=== PATIENT | male | born 1940 | race African-American/Black ===

== ENCOUNTER 2020-10-01 09:55 | Outpatient (CLI) | payer MEDICARE, BC, SELFPAY ==
--- NOTE | 2020-10-01 09:57 | ECG_ITS ---
Measurements Intervals [place] Rate: 60 P: 47 KS: 169 QRS: 7 QRSD: 152 T: 29 QT: 416 QTc: 417 Interpretive Statements SINUS RHYTHM RIGHT BUNDLE BRANCH BLOCK CONSIDER INFERIOR INFARCT, AGE INDETERMINATE ABNORMAL ECG Electronically Signed On 10-01-2020 10:13:30 [employer] by Adis Hartley D.O.
[2020-10-01 10:15] LABS: Hematocrit 34.5 % (42.0-52.0)
[2020-10-01 10:28] LABS: Potassium 4.4 mmol/L (3.4-5.0)
[2020-10-01 10:40] LABS: Anion Gap 3 mmol/L (8-16); Blood Urea Nitrogen 16 mg/dL (9-20); Carbon Dioxide 34 mmol/L (22-30); Chloride 104 mmol/L (98-107); Estimated Glomerular Filt Rate > 60; Glucose 138 mg/dL (75-110); Sodium 141 mmol/L (137-145)
== END 2020-10-01 09:56 | disposition home or self-care (01) ==
PROVIDERS: Anesthesiology; PCP Family Medicine; Visit Provider Urology
DX: D64.9 Anemia, unspecified (principal); I10 Essential (primary) hypertension; Z79.899 Other long term (current) drug therapy; Z01.818 Encounter for other preprocedural examination; I45.10 Unspecified right bundle-branch block
CPT/HCPCS: 36415; 80048; 85014; 85018; 93005

== ENCOUNTER 2020-10-04 02:03 | Outpatient (CLI) | payer MEDICARE, BC, SELFPAY ==
[2020-10-04 20:00] LABS: SARS-CoV-2 RNA PCR Negative
== END 2020-10-04 02:04 | disposition home or self-care (01) ==
LOC: ANHCOVIDDT 02:04
PROVIDERS: PCP Family Medicine; Visit Provider Urology
DX: Z01.812 Encounter for preprocedural laboratory examination (principal); Z20.828 Contact with and (suspected) exposure to other viral communicable diseases
CPT/HCPCS: 87635; C9803; U0003

== ENCOUNTER → 2020-10-07 12:07 | Day surgery (SDC) | payer MEDICARE, BC, SELFPAY ==
[2020-09-30 13:10] VITALS: BMI 34.4
--- NOTE | 2020-10-04 14:36 | WPDANESEPPF ---
Anes - Initial Pre Proc Eval Procedure: Operation Date: 10/07/20 12:30 Proposed Procedures p Interstim Phase One And Two Combined - Rico Gautam MD Date/Time: 10/04/20 14:36 Surgeon: Rico Gautam MD Pre Op Diagnosis: Overactive Bladder Patient Data Age: 79 Gender: M Height: 1.78 m Weight: 109 kg Allergies Allergy/AdvReac Type Severity Reaction Status Date / Time No Known Allergies Allergy Unverified 09/30/20 12:59 Home Medications Medication Instructions Recorded Confirmed Type B Complex-Vitamin B12 1,000 mg PO QAM 09/30/20 09/30/20 History aspirin [Adult Low Dose Aspirin] 81 mg PO DAILY 09/30/20 09/30/20 History clopidogrel 75 mg PO DAILY 09/30/20 09/30/20 History ferrous sulfate 325 mg PO DAILY 09/30/20 09/30/20 History folic acid 1 mg PO QAM 09/30/20 09/30/20 History hydrochlorothiazide 12.5 mg PO QAM 09/30/20 09/30/20 History metoprolol tartrate 50 mg PO BID 09/30/20 09/30/20 History mirabegron [Myrbetriq] 50 mg PO HS 09/30/20 09/30/20 History pantoprazole 20 mg PO QAM 09/30/20 09/30/20 History potassium chloride 10 meq PO QAM 09/30/20 09/30/20 History simvastatin 40 mg PO HS 09/30/20 09/30/20 History PMFSH Past Medical History Medical History (Updated 10/04/20 @ 14:36 by Nikhil Cespedes DO) BPH (benign prostatic hyperplasia) CAD (coronary artery disease) GERD (gastroesophageal reflux disease) Hyperlipidemia Hypertension [place] (obstructive sleep apnea) CPAP Osteoarthritis Surgical History Surgical History (Updated 10/04/20 @ 14:36 by Nikhil Cespedes DO) History of coronary artery stent placement [id number] Social History Social History Smoking packs per day: 0.5 Smoking cigarettes per day: 10.0 Years smoked: 10 Smoking pack-years: 5.00 Smoking status: Former smoker Smoking end date: 04/17/80 Alcohol intake: former Substance use: never Additional living arrangements comments: Spiritual care concerns: No Anes - Eval Final PreProcedure Day of Procedure 10/04/20 14:36 Patient weight: obese Heart: regular rate and rhythm Lungs: clear to auscultation and normal air movement Airway: Mallampati scale class II Neurological: alert and oriented Last oral intake: >/= 8 hours ASA classification: III Emergent: no Anesthetic plan: proceed Anesthesia type and monitoring: general GIVS and standard monitoring Informed Consent: The patient's anesthetic plan and its attendant risks and benefits were discussed with the patient/family/POA. Questions were solicited and answers provided to the satisfaction of the patient/family/POA.
--- NOTE | 2020-10-05 15:50 | PM.IMHP ---
H&P: HPI History of Present Illness Date/Time: 10/05/20 15:50 Chief Complaint: OAB Narrative: Chris Birmingham is a 79 year old male with OAB and a successful trial of SNS Review of Systems Review of Systems: All systems reviewed & are unremarkable except as noted in HPI and below PMFSH Past Medical History Medical History (Updated 10/05/20 @ 15:52 by Rico Gautam MD) BPH (benign prostatic hyperplasia) CAD (coronary artery disease) GERD (gastroesophageal reflux disease) Hyperlipidemia Hypertension [place] (obstructive sleep apnea) CPAP Osteoarthritis Surgical History Surgical History (Updated 10/04/20 @ 14:36 by Nikhil Cespedes DO) History of coronary artery stent placement , 2003 Social History Social History Smoking packs per day: 0.5 Smoking cigarettes per day: 10.0 Years smoked: 10 Smoking pack-years: 5.00 Smoking status: Former smoker Smoking end date: 04/17/80 Alcohol intake: former Substance use: never Additional living arrangements comments: Spiritual care concerns: No Meds Home Medications and Allergies Home Medications Medication Instructions Recorded Confirmed Type B Complex-Vitamin B12 1,000 mg PO QAM 09/30/20 09/30/20 History aspirin [Adult Low Dose Aspirin] 81 mg PO DAILY 09/30/20 09/30/20 History clopidogrel 75 mg PO DAILY 09/30/20 09/30/20 History ferrous sulfate 325 mg PO DAILY 09/30/20 09/30/20 History folic acid 1 mg PO QAM 09/30/20 09/30/20 History hydrochlorothiazide 12.5 mg PO QAM 09/30/20 09/30/20 History metoprolol tartrate 50 mg PO BID 09/30/20 09/30/20 History mirabegron [Myrbetriq] 50 mg PO HS 09/30/20 09/30/20 History pantoprazole 20 mg PO QAM 09/30/20 09/30/20 History potassium chloride 10 meq PO QAM 09/30/20 09/30/20 History simvastatin 40 mg PO HS 09/30/20 09/30/20 History Allergies Allergy/AdvReac Type Severity Reaction Status Date / Time No Known Allergies Allergy Unverified 09/30/20 12:59 Exam Const: General: cooperative and healthy appearing Eyes: General: appearance normal, both eyes and all related structures Resp: Effort & Inspection: normal respiratory effort and able to speak in complete sentences GI: Inspection: normal to inspection Back/Spine/Pelvis: Back: no CVA tenderness Skin: General skin exam: normal color Neuro: General: patient oriented x3 Extrem: General: normal to inspection Assessment and Plan Assessment and plan (1) Overactive bladder: Code(s): N32.81 - Overactive bladder Status: Acute Assessment and Plan: InterStim inplant
--- NOTE | 2020-10-07 10:26 | WPDHPUPDATE1 ---
History and Physical Update Update Date/Time: 10/07/20 10:26 History and Physical has been reviewed, including an updated exam of the patient. There are NO changes in the patient's condition. Risks, benefits, and alternatives have been discussed and questions answered. Patient agrees to proceed with procedure.
== END ==
PROVIDERS: PCP Family Medicine; Visit Provider Urology
DX: N32.81 Overactive bladder (principal); I10 Essential (primary) hypertension; I25.10 Atherosclerotic heart disease of native coronary artery without angina pectoris; K21.9 Gastro-esophageal reflux disease without esophagitis; E78.5 Hyperlipidemia, unspecified; G47.33 Obstructive sleep apnea (adult) (pediatric); M19.90 Unspecified osteoarthritis, unspecified site; N40.0 Benign prostatic hyperplasia without lower urinary tract symptoms; Z87.891 Personal history of nicotine dependence; Z79.02 Long term (current) use of antithrombotics/antiplatelets; Z79.82 Long term (current) use of aspirin; Z53.9 Procedure and treatment not carried out, unspecified reason
CPT/HCPCS: 99211; G0463